=== PATIENT | male | born 1995 | race American Indian/Alaskan Native ===

== ENCOUNTER 2021-03-16 13:54 | Emergency (ER) | payer SELFPAY ==
[2021-03-16] MEDS ORDERED: HYOSCYAMINE SUBL 0.125 MG TAB SL ONE (14:24)
[2021-03-16] MEDS ORDERED: ONDANSETRON 4 MG ODT TAB PO ONE (14:24)
[2021-03-16] MEDS ORDERED: ACETAMINOPHEN W/CODEINE 300-30 MG TAB PO ONE (14:24)
--- NOTE | 2021-03-16 14:56 | XRay Report ---
CHEST 2 VIEWS INDICATION / CLINICAL INFORMATION: COVID +, cough, SOB. COMPARISON: None available. FINDINGS: SUPPORT DEVICES: None. HEART / MEDIASTINUM: No significant abnormality. LUNGS / PLEURA: No significant pulmonary abnormality. No significant pleural effusion. No pneumothora x. ADDITIONAL FINDINGS: No significant additional findings. IMPRESSION: 1. No acute abnormality of the chest. Signer Name: Moises Bowman MD Signed: 03/16/2021 2:51 PM Workstation Name: [id number]
--- NOTE | 2021-03-16 15:07 | Emergency Department Report ---
<ZOYA GAN - Last Filed: 03/16/21 19:23> - General Chief Complaint: Upper Respiratory Infection Stated Complaint: COVID + Time Seen by Provider: 03/16/21 14:18 Source: patient, EMS Mode of arrival: Ambulatory Limitations: No Limitations - History of Present Illness Initial Comments: Patient is a 25-year-old male presents emergency room complaints of COVID-19. He reports he tested positive for COVID-19 yesterday morning. He states he started feeling sick 3 days ago. He has associated cough, generalized body aches, chills, subjective fever, vomiting, diarrhea, shortness of breath. He denies any chest pain, sore throat, ear pain. Past medical history of bipolar and schizoaffective. No allergies medications - Related Data Previous Rx's Medication Instructions Recorded Last Taken Type Benzonatate [Tessalon Perles] 100 mg PO Q8HR PRN #12 cap 03/16/21 Unknown Rx Hyoscyamine Subl [Levsin Sl 0.125 0.125 mg SL Q6HR PRN #8 tab 03/16/21 Unknown Rx TAB] Naproxen 375 mg PO BID PRN #14 tab 03/16/21 Unknown Rx Ondansetron [Zofran Odt] 4 mg PO Q8HR PRN #8 tab.rapdis 03/16/21 Unknown Rx Allergies Allergy/AdvReac Type Severity Reaction Status Date / Time No Known Allergies Allergy Verified 03/16/21 14:37 ED Review of Systems Comment: All other systems reviewed and negative ED Past Medical Hx - Medications Home Medications: Home Medications Medication Instructions Recorded Confirmed Last Taken Type Benzonatate [Tessalon Perles] 100 mg PO Q8HR PRN #12 cap 03/16/21 Unknown Rx Hyoscyamine Subl [Levsin Sl 0.125 0.125 mg SL Q6HR PRN #8 tab 03/16/21 Unknown Rx TAB] Naproxen 375 mg PO BID PRN #14 tab 03/16/21 Unknown Rx Ondansetron [Zofran Odt] 4 mg PO Q8HR PRN #8 tab.rapdis 03/16/21 Unknown Rx ED Physical Exam - General Limitations: No Limitations General appearance: alert, in no apparent distress - Head Head exam: Present: atraumatic, normocephalic - Eye Eye exam: Present: normal appearance - ENT ENT exam: Present: mucous membranes moist - Respiratory Respiratory exam: Present: normal lung sounds bilaterally. Absent: respiratory distress, wheezes, rales, rhonchi, stridor, chest wall tenderness, accessory muscle use, decreased breath sounds, prolonged expiratory - Cardiovascular Cardiovascular Exam: Present: normal rhythm, tachycardia - Neurological Exam Neurological exam: Present: alert, oriented X3 - Psychiatric Psychiatric exam: Present: normal affect, normal mood - Skin Skin exam: Present: warm, dry, intact ED Medical Decision Making - Lab Data Result diagrams: 03/16/21 15:09 03/16/21 15:09 Lab Results 03/16/21 03/16/21 Range/Units 15:09 15:09 WBC 17.5 H (4.5-11.0) K/mm3 RBC 4.71 (3.65-5.03) M/mm3 Hgb 13.5 (11.8-15.2) gm/dl Hct 42.6 (35.5-45.6) % MCV 91 (84-94) fl MCH 29 (28-32) pg MCHC 32 (32-34) % RDW 14.3 (13.2-15.2) % Plt Count 282 (140-440) K/mm3 Lymph % (Auto) 10.3 L (13.4-35.0) % Sterling % (Auto) 4.6 (0.0-7.3) % Eos % (Auto) 0.0 (0.0-4.3) % Baso % (Auto) 0.4 (0.0-1.8) % Lymph # (Auto) 1.8 (1.2-5.4) K/mm3 Sterling # (Auto) 0.8 (0.0-0.8) K/mm3 Eos # (Auto) 0.0 (0.0-0.4) K/mm3 Baso # (Auto) 0.1 (0.0-0.1) K/mm3 Seg Neutrophils % 84.7 H (40.0-70.0) % Seg Neutrophils # 14.9 H (1.8-7.7) K/mm3 Sodium 137 (137-145) mmol/L Potassium 5.0 (3.6-5.0) mmol/L Chloride 97.9 L (98-107) mmol/L Carbon Dioxide 27 (22-30) mmol/L Anion Gap 17 mmol/L BUN 14 (9-20) mg/dL Creatinine 1.1 (0.8-1.3) mg/dL Estimated GFR > 60 ml/min BUN/Creatinine Ratio 13 % Glucose 112 H (75-100) mg/dL Calcium 9.5 (8.4-10.2) mg/dL Total Bilirubin 0.50 (0.1-1.2) mg/dL AST 33 (5-40) units/L ALT 19 (7-56) units/L Alkaline Phosphatase 72 (35-129) units/L Total Protein 7.3 (6.3-8.2) g/dL Albumin 4.4 (3.9-5) g/dL Albumin/Globulin Ratio 1.5 % Vital Signs 03/16/21 03/16/21 13:55 16:31 Temperature 98.8 F Pulse Rate 113 H 96 H Respiratory 16 17 Rate Blood Pressure 115/73 117/64 [Right] O2 Sat by Pulse 98 98 Oximetry - Radiology Data Radiology results: report reviewed Ordering Physician: OLIVER HAQ Date of Service: 03/16/21 Procedure(s): XR chest routine 2V Accession Number(s): [id number] cc: OLIVER HAQ Fluoro Time In Minutes: CHEST 2 VIEWS INDICATION / CLINICAL INFORMATION: COVID +, cough, SOB. COMPARISON: None available. FINDINGS: SUPPORT DEVICES: None. HEART / MEDIASTINUM: No significant abnormality. LUNGS / PLEURA: No significant pulmonary abnormality. No significant pleural effusion. No pneumothorax. ADDITIONAL FINDINGS: No significant additional findings. IMPRESSION: 1. No acute abnormality of the chest. Signer Name: Moises Bowman MD Signed: 03/16/2021 2:51 PM Workstation Name: [id number] Transcribed By: [place] Dictated By: Moises Bowman MD Electronically Authenticated By: Moises Bowman MD Signed Date/Time: 03/16/211450 DD/ 50 TD/TT: - Medical Decision Making Patient is a 25-year-old male presents emergency room complaints of COVID-19. He reports he tested positive for COVID-19 yesterday morning. He states he started feeling sick 3 days ago. He has associated cough, generalized body aches, chills, subjective fever, vomiting, diarrhea, shortness of breath. He denies any chest pain, sore throat, ear pain. Past medical history of bipolar and schizoaffective. No allergies medications. Initial vitals with tachycardia which improved to normal upon repeat. Patient has no fever or hypoxia. Chest x-ray 1. No acute abnormality of the chest. Labs with nonspecific leukocytosis, otherwise stable. This likely could be inflammatory reaction. No signs of infiltrate on x-ray. Patient given p.o. medications while in the emergency department with improvement of symptoms and he is able to tolerate p.o. intake without difficulty. Discussed all findings with patient. Discussed supportive care and symptomatic treatment with patient. Discussed the importance of outpatient follow-up and strict return precautions. Advised patient Please take medication as prescribed. Increase your fluid intake. Follow-up with your primary care doctor. Return to emergency room for any new or worsening symptoms. The CDC recommends 5 days of self quarantine from onset of symptoms followed by 5 days of strict mask wearing. ED Disposition Clinical Impression: COVID-19 Disposition: HOME / SELF CARE / HOMELESS Is pt being admited?: No Does the pt Need Aspirin: No Condition: Stable Instructions: COVID-19 Additional Instructions: Please take medication as prescribed. Increase your fluid intake. Follow-up with your primary care doctor. Return to emergency room for any new or worsening symptoms. The CDC recommends 5 days of self quarantine from onset of symptoms followed by 5 days of strict mask wearing. Prescriptions: Hyoscyamine Subl [Levsin Sl 0.125 TAB] 0.125 mg SL Q6HR PRN #8 tab PRN Reason: diarrhea Naproxen 375 mg PO BID PRN #14 tab PRN Reason: pain Benzonatate [Tessalon Perles] 100 mg PO Q8HR PRN #12 cap PRN Reason: cough Ondansetron [Zofran Odt] 4 mg PO Q8HR PRN #8 tab.rapdis PRN Reason: nausea/vomiting Referrals: MARICRUZ HOLT MD [Staff Physician] - 3-5 Days [facility] [Provider Group] - 3-5 Days Time of Disposition: 16:02 Print Language: MALAGASY <ABRAHAM MEDELLIN - Last Filed: 03/16/21 20:16> ED Review of Systems ROS: Stated complaint: COVID + Other details as noted in HPI ED Course Vital Signs 03/16/21 03/16/21 13:55 16:31 Temperature 98.8 F Pulse Rate 113 H 96 H Respiratory 16 17 Rate Blood Pressure 115/73 117/64 [Right] O2 Sat by Pulse 98 98 Oximetry - Reevaluation(s) Reevaluation #1: 03/16/21 20:15 Leukocytosis likely a stress reaction, or likely secondary to COVID-19. Patient is not hypoxic. X-ray the chest is clear. At this point in time, this patient does not meet criteria for admission or hospitalization. Supportive care for COVID-19. ED Medical Decision Making - Lab Data Result diagrams: 03/16/21 15:09 03/16/21 15:09 Critical care attestation.: If time is entered above; I have spent that time in minutes in the direct care of this critically ill patient, excluding procedure time. ED Disposition Is pt being admited?: No Does the pt Need Aspirin: No
[2021-03-16 15:31] LABS: Basophils # (Auto) 0.1 K/mm3 (0.0-0.1); Basophils % (Auto) 0.4 % (0.0-1.8); Hematocrit 42.6 % (35.5-45.6); Hemoglobin 13.5 gm/dl (11.8-15.2); Lymphocytes # (Auto) 1.8 K/mm3 (1.2-5.4); Lymphocytes % (Auto) 10.3 % (13.4-35.0); Mean Corpuscular HGB Conc 32 % (32-34); Mean Corpuscular Volume 91 fl (84-94); Monocytes # (Auto) 0.8 K/mm3 (0.0-0.8); Monocytes % (Auto) 4.6 % (0.0-7.3); Platelet Count 282 K/mm3 (140-440); Red Blood Count 4.71 M/mm3 (3.65-5.03); Red Cell Distribution Width 14.3 % (13.2-15.2)
[2021-03-16 15:53] LABS: Alanine Aminotransferase 19 units/L (7-56); Albumin 4.4 g/dL (3.9-5); BUN/Creatinine Ratio 13; Blood Urea Nitrogen 14 mg/dL (9-20); Calcium 9.5 mg/dL (8.4-10.2); Hemolysis Index 6
[2021-03-16 16:32] VITALS: BP 117/64
== END 2021-03-16 16:31 | disposition home or self-care (01) ==
LOC: ED 13:54
DX: U07.1 COVID-19 (principal)
CPT/HCPCS: 36415; 71046; 80053; 85025; 99284; J3490; Q0162